=== PATIENT | female | born 1940 | race Caucasian/White ===

== ENCOUNTER 2022-01-15 15:54 | Inpatient (IN) ==
[2022-01-15] MEDS ORDERED: SODIUM CHLORIDE 0.9% 1,000 ML IV STA (16:46)
[2022-01-15] MEDS ORDERED: ONDANSETRON 4 MG/2 ML VIAL IV STA (16:46)
[2022-01-15 17:13] LABS: Alanine Aminotransferase 35 U/L (13-56); Albumin 4.9 G/DL (3.4-5.0); Alkaline Phosphatase 66 U/L (45-117); Amylase 37 U/L (25-115); Aspartate Amino Transferase 23 U/L (0-37); Blood Urea Nitrogen 42 MG/DL (7-18); Calcium 11.5 MG/DL (8.5-10.1); Carbon Dioxide 31 MMOL/L (21-32); Chloride 87 MMOL/L (98-107); Estimated Glom Filtration Rate 16 ML/MIN; Glucose 186 MG/DL (74-106); Osmolality,Calculated 279.5 MOS/KG (273-304); Potassium 3.8 MMOL/L (3.5-5.1); Sodium 132 MMOL/L (136-145); Total Protein 8.5 G/DL (6.4-8.2)
[2022-01-15 20:02] LABS: Basophils % 0.1 % (0.0-0.8); Hematocrit 47.3 VOL% (35.7-47.0); Immature Granulocytes % 0.3 %; Immature Granulocytes Absolute 0.04 #; Lymphocytes # 1.9 10*3/uL (1.4-4.0); Lymphocytes % 13.5 % (21.3-54.2); Mean Corpuscular HGB Conc 33.8 GM/DL (32-36); Mean Corpuscular Volume 99.2 FL (87-102); Mean Platelet Volume 10.5 FL (9.6-12.0); Monocytes # 1.3 10*3/uL (0.11-0.8); Monocytes % 9.5 % (1.7-12.7); Neutrophils % 76.6 % (38.7-73.9); Platelet Count 266 T/CUMM (130-400); Red Blood Count 4.77 MC/CUMM (3.8-5.5); Red Cell Distribution Width 13.5 % (9.3-17.3); White Blood Count 13.8 T/CUMM (4-12)
[2022-01-15 20:30] LABS: Hyaline Casts,Urine 29 /LPF (0-3); Mucus,Urine Occasional /LPF (Occasional); RBC,Urine 5 /HPF (0-4); Squamous Epithelial Cell,Urine Occasional /HPF (0-10); Urine Appearance Clear (Clear); Urine Color Dark Yellow (Yellow); Urine pH 5.5 (4.5-8.0)
[2022-01-15 20:31] LABS: Bilirubin,Urine Moderate mg/dL (Negative); Blood, Urine Negative (Negative); Glucose,Urine (UA) Negative (Negative); Ketones,Urine 15 mg/dL (Negative); Nitrite,Urine Negative (Negative); Protein,Urine 30 mg/dL (Negative); Urine Urobilinogen 0.2 eU/dL (<2.0)
[2022-01-15] MEDS ORDERED: ONDANSETRON 4 MG/2 ML VIAL IV PRN (20:46)
[2022-01-15] MEDS: PIPERACILLIN/TAZOBACTAM 3,375 MG in SODIUM CHLORIDE 0.9% 100 ML IV SCH (22:30)
[2022-01-15] MEDS: DEXTROSE 5% NACL 0.45% 1,000 ML IV SCH (22:30)
[2022-01-16 04:44] LABS: Eosinophils % 0.1 % (0.00-10.9); Immature Granulocytes % 0.3 %; Monocytes % 10.2 % (1.7-12.7)
[2022-01-16 04:58] LABS: Basophils % 0.3 % (0.0-0.8); Hematocrit 40.9 VOL% (35.7-47.0); Hemoglobin 14.1 GM/DL (12.0-16.0); Immature Granulocytes Absolute 0.04 #; Lymphocytes # 1.5 10*3/uL (1.4-4.0); Lymphocytes % 12.7 % (21.3-54.2); Mean Corpuscular HGB Conc 34.5 GM/DL (32-36); Mean Corpuscular Volume 97.4 FL (87-102); Mean Platelet Volume 9.9 FL (9.6-12.0); Monocytes # 1.2 10*3/uL (0.11-0.8); Neutrophils % 76.4 % (38.7-73.9); Red Cell Distribution Width 13.3 % (9.3-17.3); White Blood Count 11.9 T/CUMM (4-12)
[2022-01-16 05:00] LABS: Platelet Count 205 T/CUMM (130-400)
[2022-01-16 05:11] LABS: Calcium 9.8 MG/DL (8.5-10.1); Osmolality,Calculated 278.7 MOS/KG (273-304); Potassium 3.4 MMOL/L (3.5-5.1)
[2022-01-16] MEDS: DEXTROSE 5% NACL 0.45% 1,000 ML IV SCH ×2 (06:18→14:53)
[2022-01-16] MEDS: PIPERACILLIN/TAZOBACTAM 3,375 MG in SODIUM CHLORIDE 0.9% 100 ML IV SCH ×2 (09:28→20:36)
[2022-01-16] MEDS: PANTOPRAZOLE 40 MG VIAL IV SCH (09:28)
[2022-01-16] MEDS: DEXT 5% NACL 0.45% KCL 40 MEQ 40 MEQ/1,000 ML BAG IV SCH (18:52)
[2022-01-16] MEDS ORDERED: diphenhydrAMINE 50 MG/1 ML VIAL IV ONE (21:29)
[2022-01-16 23:06] LABS: Bacteria,Urine Occasional /HPF (Few); Hyaline Casts,Urine 24 /LPF (0-3); Mucus,Urine Occasional /LPF (Occasional); RBC,Urine 47 /HPF (0-4); Squamous Epithelial Cell,Urine Occasional /HPF (0-10)
[2022-01-16 23:07] LABS: Bilirubin,Urine Negative (Negative); Blood, Urine Negative (Negative); Glucose,Urine (UA) Negative (Negative); Ketones,Urine Negative (Negative); Nitrite,Urine Negative (Negative); Protein,Urine 30 mg/dL (Negative); Urine Appearance Clear (Clear); Urine Color Yellow (Yellow); Urine Specific Gravity > 1.030 (1.001-1.035); Urine Urobilinogen 0.2 eU/dL (<2.0); Urine pH 5.5 (4.5-8.0)
[2022-01-17 05:02] LABS: Basophils % 0.1 % (0.0-0.8); Eosinophils # 0.1 10*3/uL (0.0-0.87); Eosinophils % 0.8 % (0.00-10.9); Hematocrit 38.4 VOL% (35.7-47.0); Immature Granulocytes % 0.4 %; Immature Granulocytes Absolute 0.03 #; Lymphocytes # 1.7 10*3/uL (1.4-4.0); Mean Corpuscular HGB Conc 33.9 GM/DL (32-36); Mean Corpuscular Volume 98.5 FL (87-102); Mean Platelet Volume 9.8 FL (9.6-12.0); Monocytes # 1.1 10*3/uL (0.11-0.8); Neutrophils % 65.7 % (38.7-73.9); Platelet Count 179 T/CUMM (130-400); White Blood Count 8.4 T/CUMM (4-12)
[2022-01-17 05:18] LABS: Osmolality,Calculated 280.2 MOS/KG (273-304); Potassium 3.7 MMOL/L (3.5-5.1)
[2022-01-17 05:42] LABS: Band Neutrophils 5 % (0-10); Eosinophils 1 % (0-10); Hypochromia Slight; Lymphocytes 19 % (20-55); Microcytosis 1+; Ovalocytes Slight; Total Cells Counted 100
[2022-01-17 05:43] LABS: Platelet Estimate Adequate
[2022-01-17] MEDS ORDERED: diphenhydrAMINE 50 MG/1 ML VIAL IV PRN (08:48)
[2022-01-17] MEDS: PIPERACILLIN/TAZOBACTAM 3,375 MG in SODIUM CHLORIDE 0.9% 100 ML IV SCH ×2 (11:14→21:23)
[2022-01-17] MEDS: PANTOPRAZOLE 40 MG VIAL IV SCH (11:14)
[2022-01-17] MEDS: DEXT 5% NACL 0.45% KCL 40 MEQ 40 MEQ/1,000 ML BAG IV SCH ×2 (21:23→23:10)
[2022-01-18] MEDS ORDERED: propofoL 200 MG/20 ML VIAL IV ONE (09:22)
[2022-01-18] MEDS ORDERED: LIDOCAINE 2% 5 ML VIAL ONE ×2 (09:22→11:24)
[2022-01-18] MEDS ORDERED: SUCCINYLCHOLINE 200 MG/10 ML VIAL ONE (09:22)
[2022-01-18] MEDS ORDERED: fentaNYL 100 MCG/2 ML VIAL ONE (09:22)
[2022-01-18] MEDS ORDERED: ROCURONIUM 50 MG/5 ML VIAL IV ONE (09:22)
[2022-01-18] MEDS ORDERED: PHENYLEPHRINE DRIP 20 MG/250 ML PREMIX IV ONE (09:24)
[2022-01-18] MEDS ORDERED: ALBUMIN 5% 0 GM/0 ML VIAL IV ONE (09:24)
[2022-01-18] MEDS ORDERED: SUGAMMADEX 200 MG/2 ML VIAL IV ONE (11:04)
[2022-01-18] MEDS ORDERED: ESMOLOL 100 MG/10 ML VIAL IV ONE (11:04)
[2022-01-18] MEDS ORDERED: ONDANSETRON 4 MG/2 ML VIAL ONE (11:04)
[2022-01-18] MEDS ORDERED: GLYCOPYRROLATE 0.4 MG/2 ML VIAL ONE (11:04)
[2022-01-18] MEDS ORDERED: SEVOFLURANE 1 UNIT/15 MINUTE INH ONE (11:16)
[2022-01-18] MEDS ORDERED: DEXAMETHASONE 4 MG/1 ML VIAL ONE (11:24)
[2022-01-18] MEDS ORDERED: ROPIVACAINE 0.5% 30 ML VIAL ONE (11:24)
[2022-01-18 11:27] LABS: Mucus,Urine Occasional /LPF (Occasional); RBC,Urine 1 /HPF (0-4); Urine Appearance Clear (Clear); Urine Color Yellow (Yellow)
[2022-01-18 11:28] LABS: Bilirubin,Urine Negative (Negative); Blood, Urine Negative (Negative); Glucose,Urine (UA) Negative (Negative); Ketones,Urine Trace mg/dL (Negative); Nitrite,Urine Negative (Negative); Protein,Urine 30 mg/dL (Negative); Urine Urobilinogen 0.2 eU/dL (<2.0)
[2022-01-18] MEDS ORDERED: ALBUTEROL/IPRATROPIUM 3 ML NEB RESP TX PRN (12:30)
[2022-01-18] MEDS ORDERED: ACETAMINOPHEN 325 MG TABLET PO PRN (12:30)
[2022-01-18] MEDS ORDERED: ONDANSETRON 4 MG/2 ML VIAL IV PRN (12:30)
[2022-01-18] MEDS ORDERED: MORPHINE 2 MG/1 ML SYRINGE IV PRN (12:30)
[2022-01-18] MEDS: DEXT 5% NACL 0.45% KCL 40 MEQ 40 MEQ/1,000 ML BAG IV SCH ×2 (13:52→19:33)
[2022-01-18] MEDS: PIPERACILLIN/TAZOBACTAM 3,375 MG in SODIUM CHLORIDE 0.9% 100 ML IV SCH ×2 (13:53→22:24)
[2022-01-18] MEDS: PANTOPRAZOLE 40 MG VIAL IV SCH (13:53)
[2022-01-18] MEDS: MORPHINE 4 MG/1 ML VIAL IV PRN ×2 (13:54→18:26)
[2022-01-18] MEDS ORDERED: ZALEPLON 5 MG CAPSULE PO PRN (17:19)
[2022-01-18] MEDS ORDERED: hydrALAZINE 20 MG/1 ML VIAL IV ONE (17:42)
[2022-01-18] MEDS ORDERED: hydrALAZINE 20 MG/1 ML VIAL IV PRN (17:45)
[2022-01-19] MEDS: MORPHINE 4 MG/1 ML VIAL IV PRN ×2 (00:22→03:43)
[2022-01-19 05:36] LABS: Basophils % 0.3 % (0.0-0.8); Eosinophils # 0.1 10*3/uL (0.0-0.87); Eosinophils % 0.5 % (0.00-10.9); Hematocrit 40.2 VOL% (35.7-47.0); Hemoglobin 13.4 GM/DL (12.0-16.0); Immature Granulocytes % 0.9 %; Immature Granulocytes Absolute 0.08 #; Lymphocytes # 1.8 10*3/uL (1.4-4.0); Lymphocytes % 19.6 % (21.3-54.2); Mean Corpuscular HGB Conc 33.3 GM/DL (32-36); Mean Corpuscular Volume 101.5 FL (87-102); Monocytes % 11.1 % (1.7-12.7); Neutrophils % 67.6 % (38.7-73.9); Platelet Count 179 T/CUMM (130-400); Red Blood Count 3.96 MC/CUMM (3.8-5.5); White Blood Count 9.4 T/CUMM (4-12)
[2022-01-19 06:14] LABS: Calcium 8.4 MG/DL (8.5-10.1); Osmolality,Calculated 286.4 MOS/KG (273-304); Potassium 4.3 MMOL/L (3.5-5.1)
[2022-01-19] MEDS: DEXT 5% NACL 0.45% KCL 40 MEQ 40 MEQ/1,000 ML BAG IV SCH ×4 (07:41→18:31)
[2022-01-19] MEDS ORDERED: HYDROmorphone 1 MG/1 ML SYRINGE IV PRN (08:42)
[2022-01-19] MEDS ORDERED: KETOROLAC 30 MG/1 ML VIAL IV ONE (09:00)
[2022-01-19] MEDS: amLODIPine 5 MG TABLET PO SCH (09:16)
[2022-01-19] MEDS: PANTOPRAZOLE 40 MG VIAL IV SCH (09:17)
[2022-01-19] MEDS: PIPERACILLIN/TAZOBACTAM 3,375 MG in SODIUM CHLORIDE 0.9% 100 ML IV SCH ×2 (09:56→17:50)
[2022-01-19] MEDS ORDERED: QUEtiapine 25 MG TABLET PO PRN (10:41)
[2022-01-19] MEDS ORDERED: SODIUM CHLORIDE 0.9% 500 ML IV ONE ×2 (16:24→19:30)
[2022-01-19] MEDS: KETOROLAC 15 MG/1 ML VIAL IV SCH ×2 (17:13→22:56)
[2022-01-19] MEDS ORDERED: ZALEPLON 5 MG CAPSULE PO SCH (21:00)
[2022-01-19] MEDS: ZOLPIDEM 5 MG TABLET PO SCH (22:56)
[2022-01-20] MEDS: PIPERACILLIN/TAZOBACTAM 3,375 MG in SODIUM CHLORIDE 0.9% 100 ML IV SCH (08:02)
[2022-01-20] MEDS: KETOROLAC 15 MG/1 ML VIAL IV SCH ×4 (08:02→20:33)
[2022-01-20] MEDS: DEXT 5% NACL 0.45% KCL 40 MEQ 40 MEQ/1,000 ML BAG IV SCH ×3 (08:04→20:33)
[2022-01-20 08:28] LABS: Basophils % 0.5 % (0.0-0.8); Eosinophils # 0.3 10*3/uL (0.0-0.87); Eosinophils % 3.4 % (0.00-10.9); Hemoglobin 12.2 GM/DL (12.0-16.0); Immature Granulocytes % 2.3 %; Immature Granulocytes Absolute 0.19 #; Lymphocytes # 2.2 10*3/uL (1.4-4.0); Mean Corpuscular HGB Conc 32.1 GM/DL (32-36); Mean Corpuscular Volume 103.8 FL (87-102); Mean Platelet Volume 10.7 FL (9.6-12.0); Monocytes # 0.8 10*3/uL (0.11-0.8); Monocytes % 9.7 % (1.7-12.7); Neutrophils % 57.1 % (38.7-73.9); Platelet Count 194 T/CUMM (130-400); Red Blood Count 3.66 MC/CUMM (3.8-5.5); Red Cell Distribution Width 13.2 % (9.3-17.3); White Blood Count 8.3 T/CUMM (4-12)
[2022-01-20 08:42] LABS: Calcium 8.5 MG/DL (8.5-10.1); Osmolality,Calculated 285.4 MOS/KG (273-304); Potassium 4.3 MMOL/L (3.5-5.1)
[2022-01-20] MEDS: PANTOPRAZOLE 40 MG VIAL IV SCH (08:44)
[2022-01-20] MEDS: amLODIPine 5 MG TABLET PO SCH (08:45)
[2022-01-20] MEDS ORDERED: SODIUM CHLORIDE 0.9% 500 ML IV ONE ×2 (08:50→11:36)
[2022-01-20] MEDS: TAMSULOSIN 0.4 MG CAPSULE PO SCH (20:32)
[2022-01-20] MEDS: ZOLPIDEM 5 MG TABLET PO SCH (21:29)
[2022-01-21] MEDS: DEXT 5% NACL 0.45% KCL 40 MEQ 40 MEQ/1,000 ML BAG IV SCH ×4 (03:26→22:50)
[2022-01-21] MEDS: KETOROLAC 15 MG/1 ML VIAL IV SCH ×4 (03:27→21:15)
[2022-01-21] MEDS: amLODIPine 5 MG TABLET PO SCH (08:19)
[2022-01-21] MEDS: PANTOPRAZOLE 40 MG VIAL IV SCH (08:20)
[2022-01-21] MEDS: TAMSULOSIN 0.4 MG CAPSULE PO SCH (21:14)
[2022-01-21] MEDS: ZOLPIDEM 5 MG TABLET PO SCH (21:14)
[2022-01-22] MEDS: KETOROLAC 15 MG/1 ML VIAL IV SCH ×4 (04:32→21:19)
[2022-01-22] MEDS: DEXT 5% NACL 0.45% KCL 40 MEQ 40 MEQ/1,000 ML BAG IV SCH ×2 (05:20→16:14)
[2022-01-22 05:37] LABS: Calcium 8.3 MG/DL (8.5-10.1); Osmolality,Calculated 271.8 MOS/KG (273-304); Potassium 4.3 MMOL/L (3.5-5.1)
[2022-01-22] MEDS ORDERED: MAGNESIUM SULF RIDER 4 GM/100 ML PREMIX IV ONE (08:00)
[2022-01-22] MEDS: PANTOPRAZOLE 40 MG VIAL IV SCH (09:19)
[2022-01-22] MEDS ORDERED: amLODIPine 5 MG TABLET PO ONE (11:00)
[2022-01-22] MEDS: amLODIPine 5 MG TABLET PO SCH (19:17)
[2022-01-22] MEDS: TAMSULOSIN 0.4 MG CAPSULE PO SCH (20:48)
[2022-01-22] MEDS: ZOLPIDEM 5 MG TABLET PO SCH (20:48)
[2022-01-23] MEDS: DEXT 5% NACL 0.45% KCL 40 MEQ 40 MEQ/1,000 ML BAG IV SCH ×4 (00:30→17:07)
[2022-01-23] MEDS: KETOROLAC 15 MG/1 ML VIAL IV SCH ×2 (04:19→09:48)
[2022-01-23] MEDS ORDERED: amLODIPine 10 MG TABLET PO SCH (09:00)
[2022-01-23] MEDS: PANTOPRAZOLE 40 MG VIAL IV SCH (09:48)
[2022-01-23 14:48] LABS: Basophils # 0.1 10*3/uL (0.0-0.2); Basophils % 0.4 % (0.0-0.8); Eosinophils # 0.1 10*3/uL (0.0-0.87); Eosinophils % 1.1 % (0.00-10.9); Hematocrit 38.1 VOL% (35.7-47.0); Hemoglobin 12.4 GM/DL (12.0-16.0); Immature Granulocytes % 4.1 %; Immature Granulocytes Absolute 0.55 #; Lymphocytes # 2.9 10*3/uL (1.4-4.0); Lymphocytes % 21.4 % (21.3-54.2); Mean Corpuscular HGB Conc 32.5 GM/DL (32-36); Mean Corpuscular Volume 102.1 FL (87-102); Mean Platelet Volume 9.2 FL (9.6-12.0); Monocytes # 1.1 10*3/uL (0.11-0.8); Monocytes % 8.2 % (1.7-12.7); Neutrophils % 64.8 % (38.7-73.9); Platelet Count 284 T/CUMM (130-400); Red Blood Count 3.73 MC/CUMM (3.8-5.5); White Blood Count 13.3 T/CUMM (4-12)
[2022-01-23 15:07] LABS: Albumin 3.3 G/DL (3.4-5.0); Bilirubin,Total 0.6 MG/DL (0.20-1.00); Calcium 8.3 MG/DL (8.5-10.1); Osmolality,Calculated 267.2 MOS/KG (273-304); Potassium 4.7 MMOL/L (3.5-5.1); Total Protein 6.2 G/DL (6.4-8.2)
[2022-01-23 16:18] LABS: Band Neutrophils 1 % (0-10); Eosinophils 2 % (0-10); Lymphocytes 21 % (20-55); Total Cells Counted 100
[2022-01-23 16:23] LABS: Platelet Estimate Normal
[2022-01-23] MEDS: LACTATED RINGERS 1,000 ML IV SCH (18:13)
[2022-01-23] MEDS: TAMSULOSIN 0.4 MG CAPSULE PO SCH (22:20)
[2022-01-23] MEDS: ZOLPIDEM 5 MG TABLET PO SCH (22:20)
[2022-01-24] MEDS: DEXT 5% NACL 0.45% KCL 40 MEQ 40 MEQ/1,000 ML BAG IV SCH ×3 (02:00→06:17)
[2022-01-24] MEDS: LACTATED RINGERS 1,000 ML IV SCH ×2 (02:14→09:58)
[2022-01-24] MEDS ORDERED: amLODIPine 5 MG TABLET PO SCH (09:00)
[2022-01-24] MEDS: PANTOPRAZOLE 40 MG VIAL IV SCH (09:59)
[2022-01-24 10:26] VITALS: BP 144/79
== END 2022-01-24 13:56 | disposition home health service (06) | DRG 336 ==
LOC: N.ED 15:54 → N.EDINP 20:46 → N.5E 01-16 13:23
PROVIDERS: ADMIT Surgery; ATTEND Surgery